=== PATIENT | male | born 1975 | race Two or more races ===

== ENCOUNTER 2017-03-15 15:49 | Emergency (ER) | payer SELFPAY ==
[~2017-03-15] VITALS: Ht 193 cm; Wt 93.0 kg
[2017-03-15 16:15] VITALS: BP 136/75
--- NOTE | 2017-03-15 16:32 | NUR ---
PATIENT REFUSED TO SIGN THE DISCHARGE PAPER. PATIENT STS "SOMEBODY TOLD ME NOT TO SIGN ANY DOCUMENT IN THE HOSPITAL"
== END 2017-03-15 16:35 | disposition home or self-care (01) ==
LOC: ER 15:51
DX: M79.671 Pain in right foot (principal); G89.29 Other chronic pain; Z76.5 Malingerer [conscious simulation]
CPT/HCPCS: A4606; Z7502; Z7610

== ENCOUNTER 2017-03-18 18:35 | Emergency (ER) | payer SELFPAY ==
[~2017-03-18] VITALS: Ht 185.4 cm; Wt 93.0 kg
[2017-03-18 18:39] VITALS: BP 129/91
[2017-03-18 18:59] LABS: APPEARANCE,URINE Clear (CLEAR); BILIRUBIN,URINE Negative (NEGATIVE); BLOOD, URINE Negative Ery/uL (NEGATIVE); COLOR,URINE Yellow (YELLOW); KETONES,URINE Negative (NEGATIVE); LEUKOCYTE ESTERASE ,URINE Negative (NEGATIVE); NITRITE, URINE Negative (NEGATIVE); PH,URINE 5.5 (5.0-8.0); PROTEIN,URINE Negative (NEGATIVE); UGLUCOSE Negative (NEGATIVE); UROBILINOGEN,URINE 0.2 EU/dL (0.2)
--- NOTE | 2017-03-18 20:13 | NUR ---
Patient discharged to home in stable condition. Written and verbal after care instructions given. Patient verbalizes understanding of instruction BUT REFUSES TO SIGN STATING "THEY TOLD ME NOT TO SIGN ANYTHING". PT ALSO REFUSES DISCAHRGE VITALS.
== END 2017-03-18 20:14 | disposition home or self-care (01) ==
LOC: ER 18:38
DX: R30.0 Dysuria (principal); R10.30 Lower abdominal pain, unspecified
CPT/HCPCS: 81001; 87086; 99284; A4606; Z7610; 81000-TC

== ENCOUNTER 2018-03-02 09:17 | Emergency (ER) | payer MEDICARE ==
[~2018-03-02] VITALS: Ht 195.6 cm; Wt 90.7 kg
[2018-03-02 09:20] VITALS: BP 155/100
[2018-03-02] MEDS ORDERED: IBUPROFEN 400 MG TABLET PO ONE (10:30)
[2018-03-02] MEDS ORDERED: IBUPROFEN 400 MG TABLET ONE (10:36)
== END 2018-03-02 10:39 | disposition home or self-care (01) ==
LOC: ER 09:17
DX: K02.9 Dental caries, unspecified (principal); F17.200 Nicotine dependence, unspecified, uncomplicated; Z60.2 Problems related to living alone
CPT/HCPCS: 99283; A4606; Z7610

== ENCOUNTER 2019-12-12 12:50 | Emergency (ER) | payer MEDICARE ==
[~2019-12-12] VITALS: Ht 193 cm; Wt 81.6 kg
[2019-12-12] MEDS ORDERED: HYDROCODONE/APAP 5/325MG 1 EACH TABLET PO ONE (13:30)
[2019-12-12] MEDS ORDERED: IBUPROFEN 400 MG TABLET PO ONE (13:30)
[2019-12-12] MEDS ORDERED: HYDROCODONE/APAP 5/325MG 1 EACH TABLET ONE (13:38)
[2019-12-12] MEDS ORDERED: IBUPROFEN 400 MG TABLET ONE (13:38)
--- NOTE | 2019-12-12 14:02 | NUR ---
Took over pt care. pt c/o toothache and left face pain x 2 days. will continue to monitor. MD orders done. VSS. no acute distress noted.
--- NOTE | 2019-12-12 14:40 | NUR ---
Patient discharged to home in stable condition. Written and verbal after care instructions given. Patient verbalizes understanding of instruction and RX. Pt refused to sign discharge paper. Pt ambulated with steady gait. vss.
[2019-12-12 14:41] VITALS: BP 132/76
== END 2019-12-12 14:41 | disposition home or self-care (01) ==
LOC: ER 12:51
DX: K04.7 Periapical abscess without sinus (principal); F17.200 Nicotine dependence, unspecified, uncomplicated; Z60.2 Problems related to living alone

== ENCOUNTER 2019-12-18 13:52 | Emergency (ER) | payer MEDICARE ==
[~2019-12-18] VITALS: Ht 193 cm; Wt 86.2 kg
[2019-12-18 14:04] VITALS: BP 150/86
== END 2019-12-18 15:46 | disposition home or self-care (01) ==
LOC: ER 13:56
DX: L84 Corns and callosities (principal); F17.200 Nicotine dependence, unspecified, uncomplicated; Z59.0 Homelessness

== ENCOUNTER 2020-03-23 09:01 | Emergency (ER) | payer MEDICARE ==
[~2020-03-23] VITALS: Ht 182.9 cm; Wt 90.7 kg
[2020-03-23 09:10] VITALS: BP 157/92
== END 2020-03-23 09:43 | disposition home or self-care (01) ==
LOC: ER 09:17
DX: K04.7 Periapical abscess without sinus (principal); K03.2 Erosion of teeth; K02.9 Dental caries, unspecified; F17.200 Nicotine dependence, unspecified, uncomplicated; Z59.0 Homelessness

== ENCOUNTER 2020-09-15 13:59 | Emergency (ER) | payer MEDICARE ==
[~2020-09-15] VITALS: Ht 193 cm; Wt 77.1 kg
[2020-09-15 14:04] VITALS: BP 135/81
--- NOTE | 2020-09-15 14:15 | NUR ---
SEEN AND EXAMINED BY .
[2020-09-15] MEDS ORDERED: AMOX/CLAVULANATE 875 MG TABLET ONE (14:23)
--- NOTE | 2020-09-15 14:26 | NUR ---
Patient given written and verbal discharge instructions. Patient verbalizes understanding of instructions. Patient is ambulatory with steady gait. Refuses offer of nursing home placement. Patient given list of available shelters in surrounding area.
[2020-09-15] MEDS ORDERED: AMOX/CLAVULANATE 875 MG TABLET PO ONE (14:30)
== END 2020-09-15 14:28 | disposition home or self-care (01) ==
LOC: ER 14:02
DX: K02.9 Dental caries, unspecified (principal); R22.0 Localized swelling, mass and lump, head; Z59.0 Homelessness

== ENCOUNTER 2021-06-30 18:35 | Emergency (ER) | payer MEDICARE ==
[~2021-06-30] VITALS: Ht 193 cm; Wt 86.2 kg
[2021-06-30 18:35] VITALS: BP 162/96
[2021-06-30] MEDS ORDERED: AMOX-430 PO (19:35)
[2021-06-30] MEDS ORDERED: AMOX/CLAVULANATE 875 MG TABLET ONE (19:56)
[2021-06-30] MEDS ORDERED: AMOX/CLAVULANATE 875 MG TABLET PO ONE (20:00)
== END 2021-06-30 20:00 | disposition home or self-care (01) ==
LOC: ER 18:39
DX: K02.9 Dental caries, unspecified (principal); R22.0 Localized swelling, mass and lump, head; F17.200 Nicotine dependence, unspecified, uncomplicated; Z59.0 Homelessness

== ENCOUNTER 2021-11-18 12:26 | Emergency (ER) | payer MEDICARE ==
[~2021-11-18] VITALS: Ht 193 cm; Wt 98.9 kg
[~2021-11-18 12:26] MED LIST: AMOX-430 PO
--- NOTE | 2021-11-18 14:06 | NUR ---
BIBS FOR C/O R SIDED FACIAL/JAW PAIN 05/25 X 2 DAYS. WILL CONTINUE TO MONITOR THE PATIENT.
[2021-11-18] MEDS ORDERED: PENICILLIN V POTASSIUM 500 MG TABLET PO ONE (14:30)
[2021-11-18] MEDS ORDERED: IBUPROFEN 400 MG TABLET PO ONE (14:30)
[2021-11-18] MEDS ORDERED: AMOX/CLAVULANATE 875 MG TABLET PO ONE (14:30)
[2021-11-18] MEDS ORDERED: LIDOCAINE VISCOUS 2% UD 15 ML UDC MM ONE (14:30)
[2021-11-18] MEDS ORDERED: MISCELLANEOUS MED 1 EA EA XX ONE (14:30)
[2021-11-18] MEDS ORDERED: LIDOCAINE VISCOUS 2% UD 15 ML UDC ONE (14:53)
[2021-11-18] MEDS ORDERED: IBUPROFEN 400 MG TABLET ONE (14:53)
[2021-11-18] MEDS ORDERED: AMOX/CLAVULANATE 875 MG TABLET ONE (14:54)
[2021-11-18] MEDS ORDERED: AMOX-430 PO (15:24)
[2021-11-18] MEDS ORDERED: IBUP-1957 PO (15:24)
--- NOTE | 2021-11-18 15:35 | NUR ---
Patient given written and verbal discharge instructions. Patient verbalizes understanding of instructions. Patient is ambulatory with steady gait. Refuses offer of custodial placement. Patient given list of available shelters in surrounding area. Patient discharged to home in stable condition. Written and verbal after care instructions given. Patient verbalizes understanding of instruction.
[2021-11-18 15:36] VITALS: BP 141/89
== END 2021-11-18 15:36 | disposition home or self-care (01) ==
LOC: ER 12:29
DX: K04.7 Periapical abscess without sinus (principal); R22.0 Localized swelling, mass and lump, head; F17.200 Nicotine dependence, unspecified, uncomplicated; Z59.00 Homelessness unspecified

== ENCOUNTER 2022-11-19 22:26 | Emergency (ER) | payer MEDICARE ==
[~2022-11-19] VITALS: Ht 193 cm; Wt 81.6 kg
[~2022-11-19 22:26] MED LIST changes: +IBUP-1957 PO
[2022-11-20 01:04] VITALS: BP 130/71
--- NOTE | 2022-11-20 01:08 | NUR ---
Patient discharged to home in stable condition. Written and verbal after care instructions given. Patient verbalizes understanding of instruction. Pt ambulatory with a steady gait
== END 2022-11-20 01:10 | disposition home or self-care (01) ==
LOC: ER 22:29
DX: S90.821A Blister (nonthermal), right foot, initial encounter (principal); M79.671 Pain in right foot; R23.8 Other skin changes; Z60.2 Problems related to living alone; Z79.899 Other long term (current) drug therapy; X58.XXXA Exposure to other specified factors, initial encounter; Y93.89 Activity, other specified; Y92.89 Other specified places as the place of occurrence of the external cause; Y99.8 Other external cause status

== ENCOUNTER 2022-12-02 20:38 | Emergency (ER) | payer MEDICARE ==
[~2022-12-02] VITALS: Ht 193 cm; Wt 81.6 kg
--- NOTE | 2022-12-02 21:03 | NUR ---
BIBS FOR R FOOT PAIN X FEW DAYS, AAOX3, BREATHING EVEN AND NON LABORED.
[2022-12-02] MEDS ORDERED: SULFAMETH/TRIMETH 800/160 MG 1 UDTAB TABLET ONE (21:54)
[2022-12-02] MEDS ORDERED: CEPHALEXIN MONOHYDRATE 500 MG CAPSULE PO ONE (21:54)
[2022-12-02] MEDS: SULFAMETH/TRIMETH 800/160 MG 1 UDTAB TABLET PO ONE (21:55)
[2022-12-02] MEDS: CEPHALEXIN MONOHYDRATE 500 MG CAPSULE PO ONE (21:55)
[2022-12-02] MEDS ORDERED: TERB250T52 PO (22:26)
[2022-12-02] MEDS ORDERED: SULF1TAB48 PO (22:26)
[2022-12-02] MEDS ORDERED: CEPH500C2 PO (22:26)
[2022-12-02 22:47] VITALS: BP 134/86
--- NOTE | 2022-12-02 22:47 | NUR ---
Patient discharged to home in stable condition. Written and verbal after care instructions given. Patient verbalizes understanding of instruction.
== END 2022-12-02 22:48 | disposition home or self-care (01) ==
LOC: ER 20:40
DX: B35.3 Tinea pedis (principal); L03.116 Cellulitis of left lower limb; F17.200 Nicotine dependence, unspecified, uncomplicated; Z59.00 Homelessness unspecified; Z79.899 Other long term (current) drug therapy
CPT/HCPCS: 73610-TC

== ENCOUNTER 2022-12-04 01:49 | Emergency (ER) | payer MEDICARE ==
[~2022-12-04] VITALS: Ht 193 cm; Wt 81.6 kg
[~2022-12-04 01:49] MED LIST changes: +CEPH500C2 PO; +SULF1TAB48 PO; +TERB250T52 PO
[2022-12-04 04:47] VITALS: BP 135/76
--- NOTE | 2022-12-04 04:49 | NUR ---
PT WAS ADVICED TO CONTINUE AND FINISH THE ATB PRESCRIBED TO HIM.
--- NOTE | 2022-12-04 04:50 | NUR ---
Patient discharged to home in stable condition. Written and verbal after care instructions given. Patient verbalizes understanding of instruction. Pt ambulatory with a steady gait. pt was provided with new socks
== END 2022-12-04 04:51 | disposition home or self-care (01) ==
LOC: ER 02:06
DX: L03.115 Cellulitis of right lower limb (principal); M79.671 Pain in right foot; F17.200 Nicotine dependence, unspecified, uncomplicated; Z59.00 Homelessness unspecified; Z79.899 Other long term (current) drug therapy